=== PATIENT | male | born 1995 | race Caucasian/White ===

== ENCOUNTER 2020-08-25 11:52 | Emergency (ER) | payer OTHER, SELFPAY ==
[2020-08-25 11:53] VITALS: BP 125/80; PULSE 114; RESP 20; TEMP 36.8; O2SAT 100; BMI 23.6
--- NOTE | 2020-08-25 12:27 | CT_ITS ---
PROCEDURE: CT ABDOMEN PELVIS W CON CLINICAL INDICATION: Periumbilical pain with nausea COMPARISON: No exams were available for comparison TECHNIQUE: IV Contrast: 75ML Isovue 370 Oral Contrast None Axial images obtained with sagittal and coronal reformats. All CT scans at the facility use one or more dose reduction, viz: automated exposure control, ma/kV adjustment per patient size (including targeted exams where dose is matched to indication, i.e. head), or iterative reconstruction technique. FINDINGS: LOWER THORAX: No acute finding ABDOMEN & PELVIS: The liver has an unremarkable appearance. Multi septations are present involving the spleen. Unremarkable appearing pancreas. No renal or ureteral calculi. No hydronephrosis. No evidence of appendicitis. There are multiple unopacified loops of large and small bowel. There is thickening of the small bowel loops in the pelvis consistent with enteritis. These are loops of the ileum. No intestinal obstruction or free air is evident. No obvious abscess. No acute bony findings. IMPRESSION: There are thickened fluid-filled small bowel loops within the pelvis consistent with enteritis. There is a small amount fluid in the pelvis. No evidence of appendicitis. No renal or ureteral calculi. Dictated by: Jaison Weir MD 08/25/2020 13:26 Jaison Weir MD in [place] 08/25/2020 13:26
[2020-08-25 12:34] LABS: Basophils # 0.1 K/mm3 (0-0.2); Basophils % 0.5 % (0.1-2.0); Chloride 100 mmol/L (98-107); Eosinophils # 0.1 K/mm3 (0.0-0.4); Eosinophils % 0.3 % (0.1-12.0); Hematocrit 56.7 % (42.0-52.0); Lymphocytes % 6.2 % (10-50); Mean Corpuscular HGB Conc 34.7 g/dL (31.8-35.4); Mean Corpuscular Hemoglobin 30.7 pg (27.0-31.2); Mean Corpuscular Volume 88.4 fl (80-94); Mean Platelet Volume 6.9 fl (7.4-10.4); Monocytes # 0.6 K/mm3 (0.1-1.0); Monocytes % 3.5 % (1.7-9.3); Neutrophils % 89.4 % (37.0-80.0); Platelet Count 336 K/mm3 (142-424); Red Blood Count 6.42 M/mm3 (4.60-6.20); Red Cell Distribution Width 13.8 % (11.5-17.5); White Blood Count 16.7 K/mm3 (4.8-10.8)
[2020-08-25 12:35] LABS: Potassium 3.7 mmoL/L (3.5-5.1); Sodium 138 mmol/L (136-145)
[2020-08-25 12:36] LABS: MANUAL DIFFERENTIAL MANUAL DIFFERENTIAL (MANUAL DIFF)
[2020-08-25 12:37] LABS: Alanine Aminotransferase 27 U/L (12-78); Amylase 87 U/L (30-110); Aspartate Amino Transferase 36 U/L (17-59); Blood Urea Nitrogen 15 mg/dl (9-20); Creatinine Clearance Estimated 112 mL/min (50-200); Estimated Glomerular Filt Rate 91 ml/min (>60); GFR (African American) 110 ML/MIN (>60)
[2020-08-25 12:38] LABS: Albumin/Globulin Ratio 1.2 (1.1-1.8); Alkaline Phosphatase 90 U/L (38-126); Anion Gap 12.7 mEq/L (5-15); Bilirubin,Total 0.8 mg/dl (0.2-1.3); Calcium 10.1 mg/dl (8.4-10.2); Carbon Dioxide 29 mmol/L (22.0-30.0); Globulin 4.2 g/dL (1.3-3.2); Glucose 116 mg/dl (74-100); Lipase 89 U/L (23-300); Total Protein,Serum 9.2 g/dl (6.3-8.2)
[2020-08-25 12:42] LABS: Hemoglobin 19.7 g/dL (14.1-18.0)
[2020-08-25 12:44] LABS: Lymphocytes % 4 % (10-50); Monocytes % 4 % (2-9); Neutrophils % 92 % (42-76); Platelet Estimate Normal; RBC Morphology Normal; Total Cells Counted 100
--- NOTE | 2020-08-25 12:55 | HMH.EDGENADL ---
ED Disposition Clinical Impression: Enteritis, Dehydration Disposition: Home, Self-Care Condition on Discharge: Good Instructions: DI for Dehydration -- Adult, DI for Enteritis Additional Instructions: Continue to drink plenty of fluids. Zofran as needed for vomiting. Tylenol or ibuprofen for pain. Imodium if needed for diarrhea. Outpatient diarrhea panel if diarrhea persists. Additional instructions for VOMITING/DIARRHEA: See your physician as soon as possible for further evaluation. Return immediately if severe abdominal pain, uncontrollable vomiting, shortness of breath, fever, vomiting of blood or abdominal distention. Prescriptions: Ondansetron [Zofran 4mg ODT] 4 mg PO TIDP PRN #10 tab.rapdis PRN Reason: Nausea And Vomiting Transmission Status: Pending to [id number] Referrals: Mir Carroll MD [Primary Care Provider] - - Critical Care Critical Care Time: No Attestation: On 08/25/20, the high probability of a clinically significant, sudden or life threatening deterioration of the following system(s) required my full and direct attention, intervention and personal management. The time I documented below is in addition to time spent performing reported procedures but includes the following listed in this critical care notation. Medical Decision Making - Jose Carlos Inquiry Pt receiving controlled substance: Yes Jose Carlos was queried for this patient: No Reason not queried -: Emergent pt cond-no time Risks and benefits of using a controlled substance: were not discussed with pt by me Vital Signs: 08/25/20 11:53 08/25/20 13:04 08/25/20 14:05 Temperature 98.3 F Temperature Source Oral Pulse Rate [Left Radial] 114 H 115 H 100 H Respiratory Rate 20 16 102 H Blood Pressure [Right Arm] 125/80 114/78 112/74 Blood Pressure Mean [Right Arm] 95 90 86 Blood Pressure Source [Right Arm] Automatic Cuff Blood Pressure Position [Right Arm] Sitting 02 Sat by Pulse Oximetry 100 98 100 Oxygen Delivery Method Room Air - Lab Data Lab results reviewed: Yes: I reviewed the patient's lab results. Lab Results 08/25/20 12:00: Urine Color Yellow, Urine Appearance Clear, Urine pH 6.0, Ur Specific [place] >= 1.030, Urine Protein 2+, Urine Glucose (UA) Negative, Urine Ketones 1+, Urine Blood 1+, Urine Nitrate Negative, Urine Bilirubin 1+ A, Urine Urobilinogen 0.2, Ur Leukocyte Esterase Negative, Urine RBC Occasional, Urine WBC 3-5, Ur Squamous Epith Cells Occasional, Calcium Oxalate Crystal 1+ 08/25/20 12:11: WBC 16.7 H, RBC 6.42 H, Hgb 19.7 H*, Hct 56.7 H, MCV 88.4, MCH 30.7, MCHC 34.7, RDW 13.8, Plt Count 336, MPV 6.9 L, Neut % (Auto) 89.4 H, Lymph % (Auto) 6.2 L, [place] % (Auto) 3.5, Eos % (Auto) 0.3, Baso % (Auto) 0.5, Neut # (Auto) 15.0 H, Lymph # (Auto) 1.0, [place] # (Auto) 0.6, Eos # (Auto) 0.1, Baso # (Auto) 0.1, Total Counted 100, Neutrophils % (Manual) 92 H, Lymphocytes % (Manual) 4 L, Monocytes % (Manual) 4, Platelet Estimate Normal, RBC Morphology Normal 08/25/20 12:11: Sodium 138, Potassium 3.7, Chloride 100, Carbon Dioxide 29, Anion Gap 12.7, BUN 15, Creatinine 1.00, Estimated Creat Clear 112, Estimated GFR 91, Est GFR ( Amer) 110, Glucose 116 H, Calcium 10.1, Total Bilirubin 0.8, AST 36, ALT 27, Alkaline Phosphatase 90, Total Protein 9.2 H, Albumin 5.0, Globulin 4.2 H, Albumin/Globulin Ratio 1.2, Amylase 87, Lipase 89 Result diagrams: 08/25/20 12:11 08/25/20 12:11 Orders (Tests/Meds): ED MEDICATIONS Discontinued Medications Generic Name Dose Route Start Last Admin Trade Name Freq PRN Reason Stop Dose Admin Iopamidol 75 ml 08/25/20 13:11 08/25/20 13:12 Iopamidol-370 (76%);100ml Bottle IV 08/25/20 13:12 75 ml ONCE ONE Administration Ketorolac Tromethamine 30 mg 08/25/20 13:44 08/25/20 13:50 Ketorolac 30mg/Ml Vial IV 08/25/20 13:45 30 mg ONCE ONE Administration Morphine Sulfate 4 mg 08/25/20 12:57 08/25/20 13:00 Morphine 4mg/Ml Syringe IV 08/25/20
[2020-08-25 13:04] VITALS: BP 114/78; PULSE 115; RESP 16; O2SAT 98
[2020-08-25 13:04] LABS: Microscopic, Urine URINE MICROSCOPIC (MICROSCOPIC)
[2020-08-25 13:07] LABS: Appearance,Urine CLEAR (Clear); Blood, Urine 1+ (Negative); Color,Urine YELLOW (Yellow); Glucose,Urine (UA) Negative (Negative); Ketones,Urine 1+ (Negative); Leukocyte Esterase,Urine Negative (Negative); Nitrate,Urine Negative (Negative); Protein,Urine 2+ (Negative); Specific Gravity, Urine >= 1.030 (1.005-1.030); Urobilinogen,Urine 0.2 EU/dl (0.2)
[2020-08-25 13:12] LABS: Bilirubin,Urine 1+ (Negative)
[2020-08-25 13:19] LABS: Calcium Oxalate Crystals,Urine 1+ /lpf; RBC,Urine Occasional #/hpf (0-3); Squamous Epithelial Cell,Urine Occasional #/hpf (0-5)
[2020-08-25 14:05] VITALS: BP 112/74; PULSE 100; RESP 20; O2SAT 100
[2020-08-25 15:54] VITALS: BP 119/61; PULSE 100; RESP 20; TEMP 36.8; O2SAT 100
== END 2020-08-25 15:56 | disposition home or self-care (01) ==
PROVIDERS: Emergency Provider Emergency Medicine; PCP Family Medicine
DX: K52.9 Noninfective gastroenteritis and colitis, unspecified (principal); E86.0 Dehydration; J45.909 Unspecified asthma, uncomplicated; Z88.0 Allergy status to penicillin
CPT/HCPCS: 74177; 80053; 81001; 82150; 83690; 85007; 85025; 96365; 96366; 96375; 99283; J2405; Q9967

== ENCOUNTER 2021-03-29 11:56 | Emergency (ER) | payer OTHER, SELFPAY ==
[2021-03-29 13:55] VITALS: PULSE 74; RESP 18; TEMP 37; O2SAT 100; BMI 23.7
[2021-03-29 13:55] LABS: UTC Strep Screen (Rapid) Positive (Negative)
[2021-03-29 13:57] VITALS: BP 119/68; PULSE 74; RESP 16; TEMP 36.9
--- NOTE | 2021-03-29 14:05 | HMH.EDUTC ---
[facility] [place]ression: Strep [place] Disposition: Home, Self-Care Condition on Discharge: Good Instructions: Strep Throat, DI for Strep Throat Additional Instructions: Drink plenty of fluids. Take tylenol or ibuprofen for pain or fever. Take the medications as directed. Follow up with your regular doctor. GO TO THE ER FOR ANY WORSENING SYMPTOMS Throw your tooth brush away and get a new one. Quarantine until you know the results of your covid-19 test. If it is positive, the health department should call you and give you further instructions about your length of Quarantine and other things. Notify your school or workplace of your results and follow their instructions regarding return to work/school. Prescriptions: Brompheniramine/Pseudoephed/Dm [Bromfed Dm Cough Syrup] 5 ml PO Q6HP PRN #240 ml PRN Reason: Cough Transmission Status: Received by [facility] predniSONE [Prednisone 20mg Tab] 20 mg PO BID 4 Days #8 tab Transmission Status: Received by [facility] Azithromycin [Z-Shawn 250mg Tab*] 250 mg PO UD DOSE PK #6 tab Transmission Status: Received by [facility] Referrals: Josse Oneal MD [Primary Care Provider] - Forms: Work/School Release Time of Disposition: 14:37 Medical Decision Making - Medical Records Medical records reviewed: No: I reviewed the patient's medical records. - Jose Carlos Inquiry Pt receiving controlled substance: No Vital Signs: 03/29/21 13:55 03/29/21 13:57 Temperature 98.6 F 98.5 F Temperature Source Oral Pulse Rate 74 Pulse Rate [Right] 74 Respiratory Rate 18 16 Blood Pressure 119/68 02 Sat by Pulse Oximetry 100 - Lab Data Lab results reviewed: Yes: I reviewed the patient's lab results. Lab Results 03/29/21 13:44: Strep Scn Rapid Clinic Positive [place] [facility] [place] - General Stated complaint: possible strep Time Seen by Provider: 03/29/21 14:05 Mode of Arrival: Ambulatory Source of Information: Patient Limitations: No Limitations Description of Symptoms (Recalled from Triage Doc. by RN): PT C/O SORE THROAT SINCE SUN. HEENT Symptoms (Recalled from RN notes): Yes (SORE THROAT) Resp Symptoms (Recalled from RN notes): No Skin Symptoms (Recalled from RN notes): No MS Symptoms (Recalled from RN notes): No Functional Status (Recalled from RN notes): NA - History of Present Illness Provider Complaint: He c/o 3 days of sore throat, body aches and feeling bad. He denies any known exposure to covid-19. - Related Data Previous Rx's Medication Instructions Recorded clarithromycin 250 mg tablet 250 mg PO BID 10 Days #20 tab 02/26/19 Ondansetron [Zofran 4mg ODT] 4 mg PO TIDP PRN #10 tab.rapdis 08/25/20 Azithromycin [Z-Shawn 250mg Tab*] 250 mg PO UD DOSE PK #6 tab 03/29/21 Brompheniramine/Pseudoephed/Dm 5 ml PO Q6HP PRN #240 ml 03/29/21 [Bromfed Dm Cough Syrup] predniSONE [Prednisone 20mg 20 mg PO BID 4 Days #8 tab 03/29/21 Tab] Allergies Allergy/AdvReac Type Severity Reaction Status Date / Time Penicillins [PENICILLINS] Allergy Intermediate Verified 02/26/19 13:34 - Worker's Comp Is this a Worker's Comp case?: No [facility] History - Hepatitis A Screen Drug use history?: No High risk sexual behaviors?: No History of sexually transmitted infection?: No Currently employed?: No Childcare worker?: No Do you have indoor plumbing?: Yes Do you have electricity?: Yes Attestation statement:: This patient has been screened for Hepatitis A risk factors. I have reviewed the patient's past medical history: Yes Medical History: Reports:: Asthma Denies:: Cancer, Diabetes Mellitus Type 1, Diabetes Mellitus Type 2, MRSA Other Surgeries: Yes: No Previous Surgery Amputation: No Fractures: No - Social History Smoking Status: Never smoker Alcohol Intake: never Alcohol Intake Frequency:: holidays/special occasions only Substance Use Type: denies use Occupational Status: employed Housing
== END 2021-03-29 14:55 | disposition home or self-care (01) ==
PROVIDERS: Emergency Provider Nurse Practitioner Family; PCP Family Medicine
DX: J02.0 Streptococcal pharyngitis (principal); Z88.0 Allergy status to penicillin
CPT/HCPCS: 87880; 99202; G0463

== ENCOUNTER 2021-04-15 14:28 | Emergency (ER) | payer OTHER, SELFPAY ==
--- NOTE | 2021-04-15 15:31 | HMH.EDUTC ---
[facility] [place] Clinical Impression: Viral syndrome, Exposure to COVID-19 virus Disposition: Home, Self-Care Condition on Discharge: Good Instructions: DI for COVID-19 (Suspected or Confirmed ), Preventing the Spread of Coronavirus Discharge Instructions Additional Instructions: Drink plenty of fluids. Take tylenol or ibuprofen for pain or fever. Take the medications as directed. Follow up with your regular doctor. GO TO THE ER FOR ANY WORSENING SYMPTOMS Quarantine until you know the results of your covid-19 test. If it is positive, the health department should call you and give you further instructions about your length of Quarantine and other things. Notify your school or workplace of your results and follow their instructions regarding return to work/school. Prescriptions: Brompheniramine/Pseudoephed/Dm [Bromfed Dm Cough Syrup] 5 ml PO Q6HP PRN #240 ml PRN Reason: Cough Transmission Status: Received by [facility] Ondansetron [Zofran 4mg ODT] 4 mg PO DAILYP PRN #12 tab PRN Reason: Nausea Transmission Status: Received by [facility] Referrals: Josse Oneal MD [Primary Care Provider] - Forms: Work/School Release Time of Disposition: 15:51 Medical Decision Making - Medical Records Medical records reviewed: No: I reviewed the patient's medical records. - Jose Carlos Inquiry Pt receiving controlled substance: No Vital Signs: 04/15/21 15:55 04/15/21 15:58 Temperature 99.1 F 99.1 F Temperature Source Oral Oral Pulse Rate 89 Pulse Rate [Apical] 89 Respiratory Rate 18 18 Blood Pressure 125/77 Blood Pressure [Right Arm] 125/77 Blood Pressure Mean [Right Arm] 93 Blood Pressure Source Automatic Cuff Blood Pressure Source [Right Arm] Automatic Cuff Blood Pressure Position Sitting Blood Pressure Position [Right Arm] Sitting 02 Sat by Pulse Oximetry 97 Oxygen Delivery Method Room Air Room Air - Lab Data Lab results reviewed: Yes: I reviewed the patient's lab results. Lab Results 04/15/21 15:32: Strep Scn Rapid Clinic Negative Orders (Tests/Meds): ORDERS Category Date Time Status Covid-19 Nasal PCR ([facility]) Routine Lab 04/15/21 15:00 Received Strep Screen Confirmation Stat Micro 04/15/21 15:32 [place] [facility] [place] - General Stated complaint: covid test Time Seen by Provider: 04/15/21 15:31 - History of Present Illness Provider Complaint: He states that for the past 2 days he has felt bad and he has been congested and had a scratchy sore throat. - Related Data Previous Rx's Medication Instructions Recorded clarithromycin 250 mg tablet 250 mg PO BID 10 Days #20 tab 02/26/19 Ondansetron [Zofran 4mg ODT] 4 mg PO TIDP PRN #10 tab.rapdis 08/25/20 Azithromycin [Z-Shawn 250mg Tab*] 250 mg PO UD DOSE PK #6 tab 03/29/21 Brompheniramine/Pseudoephed/Dm 5 ml PO Q6HP PRN #240 ml 03/29/21 [Bromfed Dm Cough Syrup] predniSONE [Prednisone 20mg 20 mg PO BID 4 Days #8 tab 03/29/21 Tab] Brompheniramine/Pseudoephed/Dm 5 ml PO Q6HP PRN #240 ml 04/15/21 [Bromfed Dm Cough Syrup] Ondansetron [Zofran 4mg ODT] 4 mg PO DAILYP PRN #12 tab 04/15/21 Allergies Allergy/AdvReac Type Severity Reaction Status Date / Time Penicillins [PENICILLINS] Allergy Intermediate Verified 02/26/19 13:34 [facility] History - Hepatitis A Screen Attestation statement:: This patient has been screened for Hepatitis A risk factors. I have reviewed the patient's past medical history: Yes Medical History: Reports:: Asthma Denies:: Cancer, Diabetes Mellitus Type 1, Diabetes Mellitus Type 2, MRSA Other Surgeries: Yes: No Previous Surgery Amputation: No Fractures: No - Social History Smoking Status: Never smoker Alcohol Intake: never Alcohol Intake Frequency:: holidays/special occasions only Substance Use Type: denies use Occupational Status: employed Housing: house Household Members: family Family Hx:: No significant family history KASSANDRA Marqueza
[2021-04-15 15:45] LABS: UTC Strep Screen (Rapid) Negative (Negative)
[2021-04-15 15:55] VITALS: BP 125/77; PULSE 89; RESP 18; TEMP 37.3; O2SAT 97; BMI 25.0
[2021-04-15 15:58] VITALS: BP 125/77; PULSE 89; RESP 18; TEMP 37.3; O2SAT 98
== END 2021-04-15 15:59 | disposition home or self-care (01) ==
PROVIDERS: Emergency Provider Nurse Practitioner Family; PCP Family Medicine
DX: U07.1 COVID-19 (principal); J45.909 Unspecified asthma, uncomplicated; B34.9 Viral infection, unspecified
CPT/HCPCS: 87880; 99202; C9803; G0463; U0003; U0005

== ENCOUNTER 2022-07-04 07:43 | Emergency (ER) | payer OTHER, SELFPAY ==
[2022-07-04 07:44] VITALS: BP 118/83; PULSE 114; RESP 18; TEMP 36.8; O2SAT 98; BMI 26.4
[2022-07-04 08:01] VITALS: BP 108/81; PULSE 95; PULSE 97; O2SAT 93
[2022-07-04 08:15] VITALS: PULSE 101; O2SAT 94
--- NOTE | 2022-07-04 08:18 | HMH.EDGENADL ---
Discharge Plan Disposition Patient Disposition: Home, Self-Care Condition: Good Prescriptions Prescriptions: New oseltamivir [Tamiflu] 30 mg capsule 30 mg PO DAILY 5 Days Qty: 5 0RF No Action clarithromycin 250 mg tablet 250 mg PO BID 10 Days Qty: 20 0RF azithromycin 250 MG tablet 250 mg PO UD DOSE PK Qty: 6 0RF Rx Instructions: Take two (2) tablets today, then one (1) tablet days #2 thru #5 prednisone 20 MG tablet 20 mg PO BID 4 Days Qty: 8 0RF olutdrqknsbalmg-ofjovxzty-TJ 118 ML syrup 5 ml PO Q6HP PRN (Reason: Cough) Qty: 240 0RF bjzekuybtdtnvvq-vksbkytvm-TI 118 ML syrup 5 ml PO Q6HP PRN (Reason: Cough) Qty: 240 0RF ondansetron 4 MG tablet,disintegrating 4 mg PO DAILYP PRN (Reason: Nausea) Qty: 12 0RF ondansetron 4 MG tablet,disintegrating 4 mg PO TIDP PRN (Reason: Nausea And Vomiting) Qty: 10 0RF Referrals Follow up/Referrals: Provider,Referral, MD [Primary Care Provider] - See instructions Activity Restrictions/Add. Instructions Additional Instructions/Restrictions: Please follow up with your primary care physician in 1-2 days for further management. Please take tylenol and ibuprofen for pain control and return to ED for any worsening symptoms. Drink plenty of water. You will be called and notified of your covid and flu results. Clinical Impressions Clinical Impression: Upper respiratory infection, viral Instructions Patient Instructions: DI for Viral Upper Respiratory Infection -- Adult Print Language Print Language: Gabonese Discharge ED Provider: Aan Farooq General Adult HPI General Chief complaint: Fever Stated complaint: Fever, bodyaches, chills, sore throat Time Seen by Provider: 07/04/22 08:00 Mode of Arrival: Ambulatory Source of Information: Patient Limitations: No Limitations Description of Symptoms (Recalled from ER Triage Doc. by RN): c/o fever, sore throat, lost voice since this morning. Tylenol and motrin given prior to arrival. History of Present Illness HPI narrative: Mr. Haley is a 27 yo male w/ no significant PMH presenting to the ED for fever, sore throat and loss of his voice. No oropharyngeal exudate. No auricular pain. Patient reports symptoms onset acute over the last 24 hours. Patient reports taking tylenol and motrin prior to arrival. Denies any abdominal pain, N/V/D. no known sick contacts. MD complaint: Sore throat, fever Onset (ago): hour(s) (over the last 24 hours) Related Data Previous Rx's Medication Instructions Recorded clarithromycin 250 mg tablet 250 mg PO BID 10 days #20 tabs 02/26/19 ondansetron 4 mg disintegrating 4 mg PO TIDP PRN Nausea And 08/25/20 tablet Vomiting ##10 azithromycin 250 mg tablet 250 mg PO UD DOSE PK #6 tabs 03/29/21 fpehpsjyrbcuwhv-xuhtqsiaxdsaxgf-HN 5 ml PO Q6HP PRN Cough #240 mL 03/29/21 2 mg-30 mg-10 mg/5 mL oral syrup prednisone 20 mg tablet 20 mg PO BID 4 days #8 tabs 03/29/21 vjcrgvllgjzkjfg-omsodgvwngxevos-LO 5 ml PO Q6HP PRN Cough #240 mL 04/15/21 2 mg-30 mg-10 mg/5 mL oral syrup ondansetron 4 mg disintegrating 4 mg PO DAILYP PRN Nausea #12 tabs 04/15/21 tablet oseltamivir 30 mg capsule (Tamiflu) 30 mg PO DAILY 5 days #5 caps 07/04/22 Allergies Allergy/AdvReac Type Severity Reaction Status Date / Time Penicillins [PENICILLINS] Allergy Intermediate Verified 02/26/19 13:34 [facility] Disclaimer: The information contained in this section may have been updated after the patient was seen, as this information can be updated by other users. Social History Smoking Status: Never smoker second hand exposure: No alcohol intake: never substance use type: denies use current occupational status: employed Travel in the last 8 weeks: None household members: family housing: house ROS Obtained: Yes All systems reviewed & no additional complaints except as documented Physical Exam General General appearanc
[2022-07-04 08:19] LABS: Coronavirus 19, PCR Not Detected (NotDetected); Influenza B, PCR Not Detected (NotDetected)
[2022-07-04 08:27] VITALS: BP 108/81; PULSE 97; RESP 18; TEMP 36.8; O2SAT 98
[2022-07-04 08:32] LABS: Strep Scrn Group A (Rapid) Negative (Negative)
[2022-07-04 08:41] LABS: Influenza A, PCR Detected (NotDetected)
--- NOTE | 2022-07-04 08:53 | PC.NURSE ---
MD speaking with pt about test results and further care
== END 2022-07-04 08:27 | disposition home or self-care (01) ==
PROVIDERS: Emergency Provider Student in an Organized Health Care Education/Training Program
DX: J10.1 Influenza due to other identified influenza virus with other respiratory manifestations (principal)
CPT/HCPCS: 87430; 99212; C9803; G0463; U0003; U0005